=== PATIENT | male | born 2000 | race American Indian/Alaskan Native ===

== ENCOUNTER 2021-04-09 23:38 | Emergency (ER) | payer SELFPAY ==
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
--- NOTE | 2021-04-10 01:23 | US ---
INDICATION: Left testicular pain TECHNIQUE: Ultrasound scrotum and contents. Real-time wallace scale sonographic images with spectral and color Doppler imaging of the testicles were obtained. COMPARISON: None FINDINGS: Right testis: 4 x 4 x 1.8 cm. Moderate diffuse microlithiasis is seen within the right testis. Normal arterial and venous blood flow seen in the right testis. Left testis: 3.2 x 3.4 x 1.9 cm. Moderate diffuse microlithiasis is seen in the left testis. Normal arterial and venous blood flow seen in the right testis. Epididymis: The epididymis are unremarkable in size and echogenicity and have normal blood flow. Soft tissue: No significant hydrocele or varicocele noted. No adenopathy is seen. IMPRESSION: 1. 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 Given the slight increase risk of testicular neoplasm, routine regular self examination is recommended. Dictated by Carl Baker MD @ 04/10/2021 1:21:43 AM Dictated by: Carl Baker MD @ 04/10/2021 01:22:13 (Electronically Signed)
--- NOTE | 2021-04-11 17:31 | US ---
INDICATION: Left testicular pain TECHNIQUE: Ultrasound scrotum and contents. Real-time wallace scale sonographic images with spectral and color Doppler imaging of the testicles were obtained. COMPARISON: None FINDINGS: Right testis: 4 x 4 x 1.8 cm. Moderate diffuse microlithiasis is seen within the right testis. Normal arterial and venous blood flow seen in the right testis. Left testis: 3.2 x 3.4 x 1.9 cm. Moderate diffuse microlithiasis is seen in the left testis. Normal arterial and venous blood flow seen in the right testis. Epididymis: The epididymis are unremarkable in size and echogenicity and have normal blood flow. Soft tissue: No significant hydrocele or varicocele noted. No adenopathy is seen. IMPRESSION: 1. 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 Given the slight increase risk of testicular neoplasm, routine regular self examination is recommended. Dictated by Carl Baker MD @ 04/10/2021 1:21:43 AM Dictated by: Carl Baker MD @ 04/10/2021 01:22:13 (Electronically Signed) Dictated by: Carl Baker MD 04/10/21 at 10 04 [facility]
== END 2021-04-10 01:50 | disposition left against medical advice (07) ==
LOC: MW.ED 23:38
DX: S30.22XA Contusion of scrotum and testes, initial encounter (principal); N50.89 Other specified disorders of the male genital organs; Y04.0XXA Assault by unarmed brawl or fight, initial encounter
CPT/HCPCS: 76870; 76870-26; 81001; 93976; 93976-26; 99284-25